=== PATIENT | female | born 1945 | race Caucasian/White ===

== ENCOUNTER 2018-04-28 14:32 | Emergency (ER) | payer OTHER ==
[~2018-04-28] VITALS: Ht 157.5 cm; Wt 63.6 kg
[~2018-04-28 14:32] MED LIST: AMLODIPINE; ATENOLOL; CELEXA
[2018-04-28 14:42] VITALS: Ht 157.5 cm; Wt 63.6 kg
[2018-04-28] MEDS ORDERED: morphine 4 MG/ML VIAL IV STA (15:14)
--- NOTE | 2018-04-28 15:20 | ERD ---
ER Documentation Chief Complaint Chief Complaint Pt with severe b eye burning after possible sap exposure to eyes. HPI 72-year-old female, previously healthy, presents to the emergency department, complaining of severe bilateral ocular pain after working in her garden cutting cactuses and succulents. The pain is described as burning, constant, 10/10. ROS All systems reviewed and are negative except as per history of present illness. Medications Home Meds Active Scripts Hydrocodone/Acetaminophen ([place] 5-325 Tablet) 1 Each Tablet, 1 TAB PO QHS PRN for PAIN LEVEL 6-10, #7 TAB Prov:ALETHEA LAGOS MD 04/28/18 Bromfenac Sodium (Bromfenac Sodium) 1.7 Ml Drops, 1 DROP OP TID for 7 Days, #1 BOTTLE Prov:ALETHEA LAGOS MD 04/28/18 Ciprofloxacin Opht* (Ciloxan*) 0.3%-3.5 Opht Oint, 1 APPLIC BOTH EYES TID for 7 Days, EA Prov:ALETHEA LAGOS MD 04/28/18 Reported Medications [Amlodipine] No Conflict Check 11/28/12 [Celexa] No Conflict Check 11/28/12 [Atenolol] No Conflict Check 11/28/12 Allergies Allergies: Coded Allergies: No Known Allergy (Unverified , 11/28/12) PMhx/Soc Medical and Surgical Hx: pt denies Medical Hx, pt denies Surgical Hx Hx Alcohol Use: No Hx Substance Use: No Hx Tobacco Use: No Smoking Status: Never smoker Physical Exam Vitals Vital Signs Date Temp Pulse Resp B/P (MAP) Pulse Ox O2 O2 Flow FiO2 Time Delivery Rate 04/28/18 64 18 128/61 97 Room Air 16:48 (83) 04/28/18 100.0 71 20 122/58 95 14:42 (79) Physical Exam Const: Distress due to pain Head: Atraumatic Eyes: Significant erythema and conjunctival edema. Anterior chamber clear, no corneal ulcers, no foreign body seen. ENT: Normal External Ears, Nose and Mouth. Neck: Full range of motion. No meningismus. Resp: Clear to auscultation bilaterally Cardio: Regular rate and rhythm, no murmurs Abd: Soft, non tender, non distended. Normal bowel sounds Skin: No petechiae or rashes Back: No midline or flank tenderness Ext: No cyanosis, or edema Neur: Awake and alert Psych: Normal Mood and Affect Results 24 hrs Current Medications Medications Dose Sig/Yaz Start Time Status Last (Trade) Ordered Route PRN Stop Time Admin Dose Reason Admin Morphine 4 mg ONCE STAT 04/28/18 DC 04/28/18 Sulfate IV 15:14 15:28 (morphine) 04/28/18 15:20 Ketorolac 15 mg ONCE STAT 04/28/18 DC 04/28/18 Tromethamine IV 15:25 15:30 (Toradol) 04/28/18 15:27 6 mg ONCE ONCE 04/28/18 DC 04/28/18 Dexamethasone IV 15:30 15:30 (Decadron) 04/28/18 15:31 Bromfenac 1 drop ONCE ONCE 04/28/18 DC 04/28/18 Sodium BOTH EYES 16:30 16:26 (Bromday) 04/28/18 16:31 2 drop ONCE ONCE 04/28/18 DC 04/28/18 Ciprofloxacin BOTH EYES 16:30 16:26 HCl 04/28/18 16:31 (Ciloxan 0.3% Oph) Procedures/MDM Differential diagnosis include but not limited to: Foreign body, corneal ulcer, corneal abrasion, chemical keratitis, infection bacterial/viral/fungal, iritis, scleritis Physical examination and clinical presentation consistent most likely with chemical keratitis. During the ED course the patient remained stable, no new complaints. Clinical impression discussed with patient who agrees with management. Procedure: Bilateral eye irrigation with Contreras's lens Location: AO Anesthesia: Tetracaine Procedure: 1000 ml normal saline irrigation. Patient tolerated well the procedure without complications. The patient is stable to be treated outpatient and will be discharged home with ciprofloxacin and Bromfed drops provided here in the emergency department. Some side effects of prescribed medications (headache, rash, nausea, vomiting, diarrhea, drowsiness, bleeding, hypertension, interactions with other medications) were reviewed. The patient was instructed to follow up with the primary care provider in the next 48h. If symptoms persist, worsen or new symptoms develop, then patient should return to the ED immediately. Disclaimer: Inadvertent spelling and grammatical errors are likely due to EHR/dictation software use and do not reflect on the overall quality of patient care. Also, please note that the electronic time recorded on this note does not necessarily reflect the actual time of the patient encounter. Departure Diagnosis: Primary Impression: Chemical exposure of eye Condition: Stable Additional Instructions: Thank you very much for allowing us to participate in your care. Your health and safety is our top priority at [facility]. Call your primary care doctor TOMORROW for an appointment during the next 2-4 days and bring all the information and medications prescribed. Have prescriptions filled and follow precisely the directions on the label. If the symptoms get worse and your provider is unavailable, return to the Emergency Department immediately. ALETHEA LAGOS MD Apr 28, 2018 15:19
[2018-04-28] MEDS ORDERED: KETOROLAC 15 MG INJ IV STA (15:25)
[2018-04-28] MEDS ORDERED: DEXAMETHASONE 10 MG/ML 1 ML INJ IV ONE (15:30)
[2018-04-28] MEDS ORDERED: BROMFENAC SODIUM 1.7 ML OPH DROP BOTH EYES ONE (16:30)
[2018-04-28] MEDS ORDERED: CIPROFLOXACIN 0.3% 2.5 ML OPH BOTH EYES ONE (16:30)
[2018-04-28 16:48] VITALS: BP 128/61; PULSE 64; RESP 18
[2018-04-28] MEDS ORDERED: CPR3OO3.5 BOTH EYES (16:49)
[2018-04-28] MEDS ORDERED: BROM1.7D9 OP (16:49)
[2018-04-28] MEDS ORDERED: HYDR-4011 PO (16:50)
== END 2018-04-28 16:56 | disposition home or self-care (01) ==
LOC: FTE 14:32
DX: T65.891A Toxic effect of other specified substances, accidental (unintentional), initial encounter (principal)
CPT/HCPCS: 96374; 96375; 99284; J1100; J1885; J2270